=== PATIENT | male | born 1970 | race Caucasian/White ===

== ENCOUNTER 2018-12-13 09:05 | Outpatient (RCR) | payer MEDICARE ==
--- NOTE | 2018-11-20 08:19 | NUR ---
11/17/18 Patient in to see doctor stating he is not sleeping well. Pt presents clean and neat, alert and oriented x 4. Pt in a pleasant mood. Pt states he is having mood swings due to sleep deprivation. Pt denies any suicidal thoughts at present time. Doctor gave prescription for Ambien. Copy of prescription in patients chart. Will go over the side effects with patient and give educational information on the medication. Pt will follow up [facility] doctor in a month. Treatment team concluded.
--- NOTE | 2018-11-21 09:43 | NUR ---
11/20/18 1438 Call to pt to inquire on how he is doing since missing IOP today. Pt states he had an appointment with his pain management doctor today. Pt states no new medication additions or changes. Pt states he will be in on Tuesday.
--- NOTE | 2018-11-27 13:56 | NUR ---
1135 Call to pt to find to check in with him. Pt states he is having car trouble and was not able to attend IOP today. Pt states he cannot attend IOP tomorrow but could come in Tuesday and Tuesday if transportation is provided. 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
--- NOTE | 2018-12-07 07:32 | NUR ---
12/05/18 1244 Patient in the office stating that he would benefit from extra help in the home as his suffers from TBI and his mom has multiple sclerosis. Pt and RN called a home care agency to inquire if there were any services available. Home care set up to meet with client and his family tomorrow. Will continue to follow up with pt.
[~2018-12-13] VITALS: Ht 182.9 cm; Wt 160.6 kg
[~2018-12-13 09:05] MED LIST: AMLODIPINE10 MG PO; ATIVAN0.5 MG PO; CYCLOBENZAPR10 MG PO; CYMBALTA30 MG PO; CYMBALTA60 MG PO; FLEXERIL PO; LORTAB 1010 MG PO; METHADONE HCL10 MG PO; MORPHINE SUL15 MG PO; NEURONTIN100 MG PO; NEURONTIN300 MG PO; OXYCOD/APAP1 TA4 PO; TRAMADOL HYDROC50 MG; TRAMADOL HYDROC50 MG PO; VISTARIL 50MG C50 M1 PO
[2018-12-13 13:03] VITALS: BP 157/104
--- NOTE | 2018-12-14 07:39 | NUR ---
12/13/18 1003 Patient in office for monthly vitals. BP 157/104, P 85 T 98.7 RR 16. BP retaken on left arm. BP 158/100. Pt states he took his BP meds this morning. Pt denies headache and chest pain. Pt states no shortness of breath. Pt states generalized pain 4/10. Pt currently takes pain medication. RN asked pt if he has found a new PCP. Pt states he has not yet. RN asked pt if he still had the list of doctors that RN had given him. Pt states he does. RN educated the pt on the importance of having a PCP to establish a relationship and to get proper care in addressing his HTN. Pt wants to attend group today and states he has no feelings of distress. RN states for pt come back for a BP recheck after first group. 1116 Pt back in office for BP recheck. Pt BP 161/103 P 82 RR 16 T98.7. RN states to pt that he needs to be reassessed further. RN states to pt that he is going to need urgent care as his BP is more elevated. 1119 Call to 911/router operator radial [phone] Patient transported to [facility]. Will follow up with patient.
--- NOTE | 2018-12-14 13:02 | NUR ---
12/14/18 1045 Call and message left for pt in regards to how he is feeling since his hospital visit yesterday. Will try again to contact patient.
== END 2018-12-14 23:59 | disposition still patient (30) ==
LOC: PATHWAYS 09:05
PROVIDERS: ATTEND Specialist
DX: F33.2 Major depressive disorder, recurrent severe without psychotic features (principal); F41.1 Generalized anxiety disorder; F11.20 Opioid dependence, uncomplicated